=== PATIENT | female | born 1950 | race Caucasian/White ===

== ENCOUNTER → 2018-11-20 | Outpatient (REF) ==
[~2018-11-20] MED LIST: ADVOCARE; ANORO IH; ASPIRIN 81M81 MG/TA2 PO; ASPIRIN E.C. 8181 MG PO; BACTRIM DS 8001 TAB PO; BIAXIN 500MG T500 MG PO; CPAP; DESYREL 50MG50 MG PO; ETHAMBUTOL HYD400 MG PO; HCTZ 25MG TAB25 MG PO; LOPRESSOR 225 MG/TAB PO; LOPRESSOR 550 MG/TAB PO; PAXIL CR25 MG PO; PAXIL40 MG PO; PROAIR HFA0.09 MG/AC IH; RIFADIN300 MG PO; SPIRIVA RE2.5 MCG/Ac IH
== END ==
LOC: ZLAB.WCH 12:02
DX: Z01.89 Encounter for other specified special examinations (principal)

== ENCOUNTER 2021-04-01 07:16 | Day surgery (SDC) | payer MEDICARE, OTHER ==
[~2021-04-01] VITALS: Ht 160 cm; Wt 75.2 kg
[2021-04-01 07:40] VITALS: BP 92/77; PULSE 60; TEMP 98.4
[2021-04-01 09:30] VITALS: BP 128/94; PULSE 66; TEMP 97.5
--- NOTE | 2021-04-01 09:30 | NUR ---
The patient arrived back to [facility] from the endoscopy suite at this time. The patient appears drowsy but arouses to her name. Post procedure vital signs were started at this time. Call light is within reach. Will continue to monitor the patient.
[2021-04-01 09:45] VITALS: BP 119/62; PULSE 62
--- NOTE | 2021-04-01 09:45 | NUR ---
The patient appears more alert and agrees to try a coke at this time. Vital signs appear stable. The patient has an intermittent cough.
[2021-04-01 10:00] VITALS: BP 123/96; PULSE 66
--- NOTE | 2021-04-01 10:00 | NUR ---
The patient appears to be tolerating the coke well. Vital signs appear stable. The patient's was called to come pick her up and will be driving in from [place].
[2021-04-01 10:15] VITALS: BP 124/66; PULSE 64
--- NOTE | 2021-04-01 10:15 | NUR ---
Discharge Instructions were reviewed with the patient at this time. She verbalized undertanding and has no questions for the nurse at this time. The patient's IV to her left hand was removed and a pressure dressing was applied to the site. The nurse instructed the patient to get dressed and notify the staff when she is ready to be escorted out.
--- NOTE | 2021-04-01 10:30 | NUR ---
The patient was escorted out via wheelchair to a private vehicle by JALEESA Gonzalez. The patient's belongings and discharge paperwork were sent with her. The patient's is present to drive her home.
[2021-04-02 01:55] VITALS: BP 142/78; PULSE 76
== END 2021-04-01 10:30 | disposition home or self-care (01) ==
LOC: SDCO 07:16
DX: R06.02 Shortness of breath (principal); Z86.19 Personal history of other infectious and parasitic diseases; J44.9 Chronic obstructive pulmonary disease, unspecified; I10 Essential (primary) hypertension; G47.33 Obstructive sleep apnea (adult) (pediatric); F41.9 Anxiety disorder, unspecified; F32.9 Major depressive disorder, single episode, unspecified; N32.81 Overactive bladder; Z85.3 Personal history of malignant neoplasm of breast; Z79.82 Long term (current) use of aspirin; Z79.899 Other long term (current) drug therapy; Z87.891 Personal history of nicotine dependence
CPT/HCPCS: J0171; J2250; J2704; J7120